=== PATIENT | female | born 1965 | race Caucasian/White ===

== ENCOUNTER 2020-11-05 10:44 | Emergency (ER) | payer OTHER, SELFPAY ==
--- NOTE | ~2020-11-05 | XR_ITS ---
EXAMINATION: XR chest 2V 11/05/2020 11:16 INDICATION: Chest pain PROCEDURE: 2 view chest COMPARISON: No prior studies for comparison. FINDINGS: The lungs are clear. The cardiomediastinal silhouette is within normal limits. There are no pleural effusions. There is no pneumothorax suspected. IMPRESSION: 1: NO ACUTE CARDIOPULMONARY DISEASE. Reviewed, dictated and finalized at location B.
[2020-11-05 11:00] VITALS: BP 135/52; PULSE 66; RESP 16; TEMP 36.6; O2SAT 99
[2020-11-05 11:01] VITALS: BP 135/52; PULSE 66; RESP 16; TEMP 36.6; O2SAT 99
--- NOTE | 2020-11-05 11:29 | ED.CHESTPAIN ---
HPI - Chest Pain General Chief Complaint: Chest Pain Stated Complaint: Chest Pain Source: patient and RN notes reviewed Limitations: no limitations History of Present Illness HPI narrative: The Covid vaccinated patient, a non-smoker/nondrinker with no HTN, HLD, AODM, early FMH, presents with chest pains. Patient states she has a shorter couple day history of retrosternal chest pain that is only present with deep breathing. It began 2 mornings ago lasted for several hours and resolved spontaneously after she took OTC aspirin. No radiation, fever, cough, S OB, calf pain/edema, CP now- except with deep breathing, laughing. No loss of taste/smell, nausea vomiting, rash; no reflux, acid taste, radiation. Available screening x-ray and EKG is completely normal; patient declines same-day hospital referral AMA. Related Data Home Medications Medication Instructions Recorded Confirmed sertraline 25 mg PO DAILY 11/05/20 11/05/20 Allergies Allergy/AdvReac Type Severity Reaction Status Date / Time No Known Allergies Allergy Verified 11/05/20 11:00 Review of Systems Review of Systems: Narrative: General/Constitutional: No weight loss,fever Eyes: N0: Redness,discharge Ears/Nose/Throat: No: Epistaxis,ear discharge Respiratory: Denies: Hemoptysis Gastrointestinal: No Vomiting, Bleeding-rectal Skin: No Lumps, eruption Neurologic: No Focal Weakness,Sz Hematologic: Denies: Petechiae/Purpura Psychiatric: No: Suicida ideationl All Other Systems: Reviewed and Negative [facility] At time of signature, agree with nursing past medical, surgical, social and family history. There is no relevant family history pertinent to the presenting complaint Exam Narrative: Exam Narrative: General Appearance: Well appearing, No distress EYE: PERRLA, Conjunctiva clear Ears: External ear normal Nose: Normal nose Mouth/Throat: Normal appearing, Normal lips Neck: Supple Respiratory: Airway patent, No respiratory distress Cardiovascular: RRR., Chest wall nontender Abdomen: Soft, Non-tender, Musculoskeletal: Full ROM Skin: Warm, Dry Neurological: A&O x3, CN II-X intact Psychiatric: Normal mood, Normal affect Course Course Emergency Course: Films visualized, interpreted by radiologist, agree, normal see report EKG: Sinus rhythm at 65 , AK interval 0.155, QTc 0.393 [place] XV degrees, no ST-T changes Vital Signs Vital signs: Vital Signs Temperature 97.9 F 11/05/20 11:00 Pulse Rate 66 11/05/20 11:00 Respiratory Rate 16 11/05/20 11:00 Blood Pressure 135/52 L 11/05/20 11:00 Pulse Oximetry 99 11/05/20 11:00 Temperature 97.9 F 11/05/20 11:01 Pulse Rate 66 11/05/20 11:01 Respiratory Rate 16 11/05/20 11:01 Blood Pressure 135/52 L 11/05/20 11:01 Pulse Oximetry 99 11/05/20 11:01 Discharge Plan Discharge Clinical Impression: Chest pain, pleuritic Patient Disposition: Left Against Medical Advice Condition: Stable Instructions: Pleurisy (ED) Additional Instructions: You have declined same-day hospital referral but can go to the ER at any time You may continue OTC preparations like baby aspirin 81 mg/day, Prilosec Prescriptions: No Action sertraline 25 mg tablet 25 mg PO DAILY RF: 0 Follow-up/Referrals: Jeanna,Mary Panchal MD [Primary Care Provider] -
--- NOTE | 2020-11-05 14:09 | ECG_ITS ---
Measurements Intervals [place] Rate: 65 P: 55 NH: 155 QRS: 14 QRSD: 94 T: 42 QT: 381 QTc: 398 Interpretive Statements SINUS RHYTHM NORMAL ECG Electronically Signed On 11-06-2020 19:03:32 CDT by Joe Rizo D.O.
== END 2020-11-05 11:38 | disposition left against medical advice (07) ==
PROVIDERS: Emergency Provider Emergency Medicine; PCP Family Medicine
DX: R07.81 Pleurodynia (principal); F41.9 Anxiety disorder, unspecified
CPT/HCPCS: 71046; 93005; 99213; G0463

== ENCOUNTER 2020-11-20 11:03 | Outpatient (CLI) | payer OTHER, SELFPAY ==
--- NOTE | 2020-11-20 | EST_ITS ---
Patient Info Name: Danette Grijalva Age: 55 years : 1965 Gender: Female Ht: 68 in Wt: 185 lbs BSA: 2.03 m2 Exam Date: 11/20/2020 11:25 AM Exam Location: [facility] Stress Patient Status: Outpatient Admit Date: 11/20/2020 Staff Ordering Physician: Jeanna, Mary Panchal MD Attending Provider: Jeanna, Mary Panchal MD Exercise Technologist: Viry Hess RDCS Exercise Physician: Rehan Currie MD Exam Type: CA stress test treadmill Study Info Indications R07.9 - Chest pain, unspecified A treadmill exercise stress test was performed. Summary 1. Normal stress test and stress ECG with near maximal exercise. 2. Above average exercise capacity for age. 3. No exercise induced chest pain. Protocol: [facility] Stress ECG Details Stage: REST Duration (min): 1 min : 57 sec Speed (mph): 0.0 Grade (%): 0 HR (bpm): 59 SBP (mmHg): 136 DBP (mmHg): 77 METS: --- Stage: REST Duration (min): 5 min : 5 sec Speed (mph): 0.0 Grade (%): 0 HR (bpm): 61 SBP (mmHg): 136 DBP (mmHg): 77 METS: --- Stage: STAGE 1 Duration (min): 1 min : 0 sec Speed (mph): 1.7 Grade (%): 10 HR (bpm): 88 SBP (mmHg): 136 DBP (mmHg): 77 METS: --- Stage: STAGE 1 Duration (min): 2 min : 0 sec Speed (mph): 1.7 Grade (%): 10 HR (bpm): 95 SBP (mmHg): 136 DBP (mmHg): 77 METS: --- Stage: STAGE 1 Duration (min): 3 min : 0 sec Speed (mph): 1.7 Grade (%): 10 HR (bpm): 102 SBP (mmHg): 120 DBP (mmHg): 65 METS: --- Stage: STAGE 2 Duration (min): 1 min : 0 sec Speed (mph): 2.5 Grade (%): 12 HR (bpm): 111 SBP (mmHg): 120 DBP (mmHg): 65 METS: --- Stage: STAGE 2 Duration (min): 2 min : 0 sec Speed (mph): 2.5 Grade (%): 12 HR (bpm): 125 SBP (mmHg): 132 DBP (mmHg): 66 METS: --- Stage: STAGE 2 Duration (min): 3 min : 0 sec Speed (mph): 2.5 Grade (%): 12 HR (bpm): 133 SBP (mmHg): 132 DBP (mmHg): 66 METS: --- Stage: STAGE 3 Duration (min): 1 min : 0 sec Speed (mph): 3.4 Grade (%): 14 HR (bpm): 151 SBP (mmHg): 132 DBP (mmHg): 66 METS: --- Stage: STAGE 3 Duration (min): 2 min : 0 sec Speed (mph): 3.4 Grade (%): 14 HR (bpm): 158 SBP (mmHg): 132 DBP (mmHg): 66 METS: --- Stage: STAGE 3 Duration (min): 2 min : 0 sec Speed (mph): 3.4 Grade (%): 14 HR (bpm): 158 SBP (mmHg): 132 DBP (mmHg): 66 METS: --- Stage: RECOVERY Duration (min): 0 min : 59 sec Speed (mph): 0.0 Grade (%): 0 HR (bpm): 116 SBP (mmHg): 150 DBP (mmHg): 76 METS: --- Stage: RECOVERY Duration (min): 1 min : 59 sec Speed (mph): 0.0 Grade (%): 0 HR (bpm): 93 SBP (mmHg): 150 DBP (mmHg): 76 METS: --- Stage: RECOVERY Duration (mi
== END 2020-11-20 11:04 | disposition home or self-care (01) ==
PROVIDERS: PCP Family Medicine; Visit Provider Family Medicine
DX: R07.9 Chest pain, unspecified (principal)
CPT/HCPCS: 93017

== ENCOUNTER 2021-08-16 16:39 | Outpatient (CLI) | payer OTHER, SELFPAY ==
--- NOTE | ~2021-08-16 | MR_ITS ---
EXAMINATION: MR foot LT wo con DATE: 08/16/2021 17:52 INDICATION: Fifth metatarsal avulsion TECHNIQUE: Magnetic resonance imaging (MRI) of the left fore/mid foot was performed without intraveno us contrast. Sequences included sagittal T1-weighted FSE, sagittal fluid sensitive FSE STIR, coronal PD-weighted FS FSE, coronal T1-weighted FSE, axial PD-weighted FS FSE, and axial PD-weighted FSE. COMPARISON: None FINDINGS: Avulsion fracture of the proximal tip of the lateral tuberosity of the fifth metatarsal involving the footplate of the peroneus brevis tendon. The fracture fragment is distracted 5 mm proximally with 60 degrees valgus angulation. Tendinopathy and longitudinal split tear of the visualized peroneus brevi s tendon distal to the tip of the lateral malleolus. Bone alignment is otherwise normal. There is add itional marrow edema consistent with bone contusions along the plantar aspect of the proximal and dis jailene articular surfaces of the cuboid. No other fractures identified. Joint spaces are normal. Small a nkle joint effusion.. The remaining flexor and extensor tendons of the foot are normal. There is part ial tear of the anterior talofibular ligament and visualized medial side stabilizing ligaments of the ankle appear normal. No asymmetric atrophy of the intrinsic musculature of the foot. IMPRESSION: 1. Mildly distracted and angulated avulsion fracture of the proximal tip at the lateral tuberosity of the fifth metatarsal. 2. Tendinopathy and longitudinal split tearing of the distal peroneus brevis tendon. 3. Additional bone contusions at the plantar aspect of the proximal and distal cuboid. 4. Partial tear of the anterior talofibular ligament with small ankle joint effusion. Reviewed, dictated and finalized at location A. IMPRESSION: 1. Mildly distracted and angulated avulsion fracture of the proximal tip at the lateral tuberosity of the fifth metatarsal. 2. Tendinopathy and longitudinal split tearing of the distal peroneus brevis te ndon. 3. Additional bone contusions at the plantar aspect of the proximal and distal cuboid. 4. Partial tear of the anterior talofibular ligament with small ankle joint eff usion.
== END 2021-08-16 16:40 | disposition home or self-care (01) ==
PROVIDERS: PCP Family Medicine; Visit Provider Podiatrist Foot & Ankle Surgery
DX: S92.352A Displaced fracture of fifth metatarsal bone, left foot, initial encounter for closed fracture (principal); X58.XXXA Exposure to other specified factors, initial encounter; M79.89 Other specified soft tissue disorders
CPT/HCPCS: 73718

== ENCOUNTER 2021-08-28 17:35 | Outpatient (CLI) | payer OTHER, SELFPAY ==
--- NOTE | ~2021-08-28 | XR_ITS ---
EXAMINATION: XR foot LT min 3V DATE: 08/28/2021 17:58 INDICATION: Left fifth metatarsal fracture. TECHNIQUE: 3 views of left foot were obtained. COMPARISON: Left foot MRI 08/16/2021 FINDINGS: There is moderate hallux valgus. There is a comminuted fracture of base of fifth metatarsal . The main fracture fragments demonstrate 7 mm distraction. There is mild osteoarthritis of first tar sometatarsal joint, first metatarsophalangeal joint, and some of the interphalangeal joints. IMPRESSION: 1. Comminuted fracture of base of fifth metatarsal. 2. Moderate hallux valgus. 3. Polyarticular osteoarthritis. Reviewed, dictated and finalized at location A.
== END 2021-08-28 17:36 | disposition home or self-care (01) ==
PROVIDERS: PCP Family Medicine; Visit Provider Podiatrist Foot & Ankle Surgery
DX: S92.352A Displaced fracture of fifth metatarsal bone, left foot, initial encounter for closed fracture (principal); X58.XXXA Exposure to other specified factors, initial encounter; M19.072 Primary osteoarthritis, left ankle and foot; M20.12 Hallux valgus (acquired), left foot
CPT/HCPCS: 73630

== ENCOUNTER 2024-09-14 10:00 | Outpatient (CLI) | payer OTHER, SELFPAY ==
--- OUTSIDE RECORDS SUMMARY | 2024-09-14 11:00 | XMS_ITS | Encounter Summary ---
Author Organization [facility] Address [address] [place] [address] Care Team Providers Care Intelligence Engineer Name Role Phone Efraín Holden MD Primary Care Provider [phone] Gaby Guo RN Unavailable Unavailable Mary Meeks MD Primary Care Provider [phone] Encounter Details Date Type Department Care Team ([facility] Contact Info) Description 05/26/2018 Telephone [facility] [address] [place] [address] Corinne Newman MD [address] [place] [address] Social History Tobacco Use Types Packs/Day Years Used Date Smoking Tobacco: Never Smokeless Tobacco: Never Alcohol Use Standard Drinks/Week Comments Yes 0 (1 standard drink = 0.6 oz pur e alcohol) Comments No Sex and Gender Information Value Date Recorded Sex Assigned at Not on file Legal Sex Female 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 Gender Identity Not on file Sexual Orientation Not on file documented as of this encounter Plan of Treatment Upcoming Encounters Date Type Department Care Team (Late Contact Info) Description 01/09/2025 11:30 AM CDT Appointment [facility] [address], [place] [id number] documented as of this encounter Visit Diagnoses Not on filedocumented in this encounter Care Teams Intelligence Engineer Relationship Specialty Start Date End Date Efraín Holden MD PCP - General 11/23/12 08/22/20 Mary Meeks MD [address] [place] [address] MICHELLE Elliott [phone] PCP - General Family Medicine 08/23/20 Gaby Guo, RN REGISTERED NURSE MEDICAL SURGICAL 05/11/18 documented as of this encounter
--- OUTSIDE RECORDS SUMMARY | 2024-09-14 11:00 | XMS_ITS | Referral Summary ---
Author Organization [facility] Address [address] [place] [address] Care Team Providers Care Garbage Stoker Name Role Phone Mary Meeks MD Primary Care Provider + Allergies No known active allergies Medications multivitamin capsule Take 1 capsule by mouth daily. Active ibuprofen (ADVIL,MOTRIN) 600 mg tablet Take 1 tablet (600 mg total) by mouth every 6 (six) hours as needed for pain. 8 Active Additional Information Patient not taking.Reported on 06/28/2021 cholecalciferol (VITAMIN D-3) 2000 unit tablet Take by mouth Active sertraline (ZOLOFT) 25 mg tablet 1 Active multivit-min/ir on/folic/lutein (CENTRUM SILVER WOMEN ORAL) Take 1 tablet by mouth Active EVENING PRIMROSE OIL ORAL Take by mouth Active naproxen (ALEVE) 220 mg tablet Take by mouth as needed for pain Active Active Problems Problem Noted Date Diagnosed Date Memory impairment 05/01/2015 Cyst of breast 10/20/2011 Immunizations Immunization Administration Dates Next Due Flucelvax Influenza Quad 03/03/2019,03/03/2017 Influenza, Quadrivalent, Spl it, Preservative Free, Intramuscular 04/04/2016 Influenza, Trivalent, High D ose, Split, Preservative Free, Intramuscular 05/19/2014 Influenza, Trivalent, IM (MDV) 03/23/2013 Influenza, Trivalent, Preservative Free, Intramu scular 03/23/2015,05/15/2014 ZOSTER Recombinant 06/12/2019,03/26/2019 Social History Tobacco Use Types Packs/Day Years Used Date Smoking Tobacco: Never Smokeless Tobacco: Never Alcohol Use Standard Drinks/Week Comments No 0 (1 standard drink = 0.6 oz pur e alcohol) Comments No Sex and Gender Information Value Date Recorded Sex Assigned at Not on file Legal Sex Female 10:29 AM CABBAGE SALTER Gender Identity Female 08/03/2022 7:32 PM CABBAGE SALTER Sexual Orientation Straight 08/03/2022 7: 32 PM CABBAGE SALTER Last Filed Vital Signs Vital Sign Reading Time Taken Comments Blood Pressure 120/80 06/28/2021 3:33 PM CABBAGE SALTER Pulse 62 09/24/2017 12:35 PM CDT Temperature 36.5 C (97.7 F) 09/24/2017 12:04 PM CDT Respiratory Rate 16 09/24/2017 12:35 PM CDT Oxygen Saturation 99% 09/24/2017 12:35 PM CDT Inhaled Oxygen Concentration - - Weight 87.6 kg (193 lb 1.6 oz) 06/28/2021 3:33 P M CABBAGE SALTER Height 171.5 cm (5' 7.5 ) 06/28/2021 3:33 PM CABBAGE SALTER Body Mass Index 29.8 06/28/2021 3:33 PM CABBAGE SALTER Plan of Treatment Not on file Insurance Care Teams Garbage Stoker Relationship Specialty Start Date End Date Mary Meeks MD [address] [place] [address] DR BRUT [address] [place] [phone] PCP - General Family Medicine 09/12/20
--- OUTSIDE RECORDS SUMMARY | 2024-09-14 11:00 | XMS_ITS | Clinical Summary ---
Author Organization [facility] Address [address] [place] [address] Care Team Providers Care Corrugator Operator Name Role Phone Gaby Guo RN Unavailable Unavailable Mary Meeks MD Primary Care Provider [phone] [facility],non-owned Affiliates and Associated Physician Practices is amultiple site organization consisting of ambulatory clinics and hospital sitesin [place], [place], [place] and [place]. This disclosure is being madepursuant to the Care Everywhere program and may not contain all information available regarding this patient. Last updated 18.[facility] [place] Allergies No known active allergies Medications * Be aware that medications may not be up to date on this document. Alwaysverify current medications with the patient. 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 Discharge Disposition: Home or Self Care 08/29/2024 8:28 AM CDT - 08/29/2024 8:31 AM CDT Hospital Encounter [facility] [address] [place] [address] Nati Bro APRN-CNP Discharge Disposition: Home or Self Care 08/29/2024 Travel 08/10/2024 7:48 AM CDT - 08/10/2024 11:59 PM CDT Hospital Encounter [address] [address] Discharge Disposition: Home or Self Care 08/10/2024 7:47 AM CDT Hospital Encounter [address] [address] Nati Bro APRN-CNP Discharge Disposition: Home or Self Care 08/10/2024 Travel 07/18/2024 12:39 PM [employer] - 07/18/2024 11:59 PM [employer] Hospital Encounter [address] [address] Nati Bro APRN-CNP Discharge Disposition: Home or Self Care 07/18/2024 Travel from Last 3 Months Family History Medical History Relation Name Comments Arthritis - Osteo Father Cancer - Skin, Non Melanoma Father Arthritis - Rheumatoid Mother Cancer - Colon Paternal Grandmother Relation Name Status Comments Father Mother Paternal Grandmother Social History Tobacco Use Types Packs/Day Years Used Date Smoking Tobacco: Never Smokeless Tobacco: Never Alcohol Use Standard Drinks/Week Comments Yes 0 (1 standard drink = 0.6 oz pur e alcohol) Comments No Sex and Gender Information Value Date Recorded Sex Assigned at Not on file Legal Sex Female 5:35 PM [employer] Gender Identity Not on file Sexual Orientation Not on file Last Filed Vital Signs Vital Sign Reading Time Taken Comments Blood Pressure 106/72 06/24/2018 4:25 PM [employer] Pulse 80 05/12/2018 8:40 AM [employer] Temperature 37.2 C (99 F) 05/12/2018 8:40 AM [employer] Respiratory Rate 18 05/12/2018 8:40 AM [employer] Oxygen Saturation 98% 05/12/2018 8:40 AM [employer] Inhaled Oxygen Concentration - - Weight 91.6 kg (202 lb) 07/18/2024 12:55 PM [employer] Height 170.2 cm (5' 7 ) 07/18/2024 12:55 PM [employer] Body Mass Index 31.64 07/18/2024 12:55 PM [employer] Plan of Treatment Upcoming Encounters Date Type Department Care Team (Late st Contact Info) Description 01/09/2025 11:30 AM CDT Appointment [facility] [address] [place] [phone] Health Maintenance Due Date Last Done Comments COLOGUARD (AGES 45-75) - COLON CA SCREENING 1965 COLON MONITORING 1965 COLONOSCOPY - COLON CA SCREENING 1965 CT COLONOGRAPHY - COLON CA SCREENING 1965 Colorectal Cancer Screening 1965 FIT - COLON CA SCREENING 1965 FLEX SIG - COLON CA SCREENING 1965 LIPID TESTING 1965 HIV SCREENING 1980 HEPATITIS C SCREENING 05/09/1983 DTAP/TDAP/TD VACCINES (1 - Tdap) 1984 HEPATITIS B VACCINE (1 of 3 - 19+ 3-dose series) 1984 PNEUMOCOCCAL VACCINE 50+ (1 of 1 - PCV) 2015 ZOSTER VACCINE (1 of 2) 2015 SCREENING FOR DIABETES 11/09/2017 COVID-19 VACCINE ( - season) 2024 DEPRESSION SCREENING 06/01/2024 INFLUENZA VACCINE (Season Ended) 2025 03/03/2019, 03/03/2017, 04/05/2016, Additional history exists MAMMOGRAM 07/18/2026 07/18/2024, 12/2022, 10/06/2022, Additional history exists HIB VACCINE Aged Out No longer eligi ble based on patient's age to complete this topic HPV VACCINE Aged Out No longer eligi ble based on patient's age to complete this topic MENINGOCOCCAL (Group B) VACCINE SHARED DECISION-MAKING Aged Out No longer eligible based on patient's age to complete this topic MENINGOCOCCAL GROUPS A/C/Y/W VACCINE Aged Out No longer eligible based on patient's age to complete this topic Medical Devices Implanted Type Area Cracker Off Device Identifier Shelf Expiration Date Model / Serial / Lot Mrkr Rgd End Dpl Dlv Sys Securmark Implanted:Qty: 1 on 09/18/2020 by Chayito Scott MD at [facility] Right: Breast Hologic 04/23/2021 SMARK-EVIV [id number] Mrkr Apl 3 Mrfbr Pd Radopq Interwoven - [id number] Implanted:Qty: 1 on 08/29/2024 by Chayito Scott MD at [facility] Peripheral Vascular 10/30/2026 [id number] / [id number] / [id number] Procedures Procedure Name Priority Date/Time Associated Diagnosis Comments US BREAST RIGHT BIOPSY Routine 08/29/2024 9:15 AM CDT Abnormal mammogram PATHOLOGY TISSUE Routine 08/29/2024 9:05 AM CDT Abnormal mammogram MAMMO RIGHT POST CLIP OR WIRE W JASON Routine 08/29/2024 8:43 AM CDT Abnormal mammogram US BREAST RIGHT LTD Routine 08/10/2024 9:18 AM CDT Abnormal mammogram MAMMO RIGHT DIAGNOSTIC W JASON Routine 08/10/2024 8:38 AM CDT Abnormal mammogram MAMMO BILAT SCREENING W JASON Routine 07/18/2024 12:55 PM [employer] Encounter for screening mammogram for malignant neoplasm of breast from Last 3 Months Results * US Breast Right Biopsy (08/29/2024 9:15 AM CDT) Anatomical Region Laterality Modality Breast Right Mammography 08/29/2024 9:12 AM CDT Addenda Addendum by Chayito Scott MD on 08/30/2024 12:47 PM CDT ADDENDUM: PATHOLOGY RESULTS LOCATION: [facility] DATE OF ADDENDUM: 08/30/[address] Ewa Fung from biopsy of the RIGHT breast performed by Dr. Scott demonstrates fibrous tissue with incidental single microcalcification in the lumen of the small duct. There is no atypia or malignancy. This is a benign lesion The pathology report is concordant with the imaging findings. Recommendation: Per diagnostic mammogram report 08/10/2024, diagnostic right mammogram recommended in December 2024 to reassess a probably benign asymmetry noted on the craniocaudal view on mammogram 08/10/2024 and 07/18/2024. Our nurse navigator will notify the patient of the biopsy findings and recommendations. Pathology report available for the referring provider via [employer]. > Interpreting Provider: Chayito Scott MD, FACR on 08/30/2024 12:45 PM Impressions 08/29/2024 9:46 AM CDT IMPRESSION: 1. Technically successful, uncomplicated ultrasound-guided core biopsy performed of a 0.5 cm mass in the RIGHT breast, 12:00 subareolar region. Of note, this may represent a cyst as the mass dissipated during the biopsy. 2. A coil -shaped tissue marker was placed at the biopsy site. The tissue marker is in good position at the biopsy site. 3. Pathology results are pending. We will notify the patient of the pathology findings and recommendations. An addendum will be rendered to this report when the pathology results are made available. > Interpreting Provider: Chayito Scott MD, FACR on 08/29/2024 9:46 AM Narrative 08/29/2024 9:46 AM CDT EXAM: 1. ULTRASOUND-GUIDED RIGHT BREAST BIOPSY AND 2. POST BIOPSY DIGITAL MAMMOGRAM WITH TOMOSYNTHESIS RIGHT BREAST (COMBINED REPORT) LOCATION: [facility] EXAM DATE: 08/29/2024 CLINICAL INFORMATION: Biopsy requested of a 0.5 cm mass in the RIGHTbreast, 12:00 subareolar region. COMPARISON: Prior breast imaging studies from [facility], dated 08/10/2024 and 07/18/2024. TECHNIQUE AND FINDINGS: Preprocedure images were reviewed. The procedure and its risks and benefits were discussed with the patient, including, but not limited to, bleeding, infection, allergy, and nondiagnostic specimen. Written and verbal informed consent was obtained and documented. After confirming the correct breast for biopsy, the breast was marked with a marking pen. The patient was then placed in a supine position on the ultrasound table. Prior to the procedure a hospital timeout procedure was performed, including verification of the laterality of the breast for biopsy. Ultrasound was performed for location of the lesion. The 0.5 cm mass in the breast, 12:00 subareolar region, was localized with ultrasound guidance. The breast was cleansed with ChloraPrep and draped in a sterile fashion. Local anesthesia was given with 4 cc of 1% Lidocaine, buffered with Sodium Bicarbonate within the skin and deeper anesthesia with 15 cc of 1% Lidocaine with Epinephrine, buffered withSodium Bicarbonate. A small skin incision was made with a #11 scalpel blade, and through it a 12-gauge Elevation with an introducer was inserted to the depth of the lesion from a lateral approach. 3 biopsy samples were obtained through the lesion. Following the biopsy, the lesion was no longer identified and this likely represents a complicated cyst. A coil -shaped tissue marker was placed at the biopsy site and a post biopsy sonogram demonstrated no evidence for hematoma about the biopsy site. Of note, patient has an S-shaped and top shaped tissue marker also in the right breast from remote biopsies. Hemostasis was achieved, and the small wound was closed with Exofin. Estimated blood loss: Minimal The tissue samples were placed in formalin and delivered to the pathology department by the technologist. Mammogram: A two-view RIGHT mammogram with tomosynthesis (3D) and reconstructed C-view( 2D) images with CC and true lateral projections was obtained to check clip placement. Breast Composition: Category B: There are scattered areas of fibroglandular density. coil -shaped tissue marker. The tissue marker is in good position at the biopsy site. ASSESSMENT: POSTPROCEDURE MAMMOGRAM FOR MARKER PLACEMENT The patient tolerated the procedure well, with no immediate post biopsy complications. The patient was given verbal, as well as written postprocedure instructions (including Exofin instructions) and was released from the department in good condition. The attending physician, Chayito Scott MD, was present for and performed the entire procedure. us Nati AUSTIN ORDERABLES Edited R esult - Final * PATHOLOGY TISSUE (08/29/2024 9:05 AM CDT) Case Report Surgical Pathology Report Case: [id number] Authorizing Provider: Nati Bro APRN-CNP Collected: 08/29/2024 09:05 AM Ordering Location: [facility] Received: 08/29/2024 09:26 AM CENTER Pathologist: Ewa Fung MD Specimen: Breast, Right, Subareolar 12:00 08/30/2024 11:15 AM CDT [facility] Final Diagnosis Breast, right, subareolar, 12:00, needle core biopsy (A): - Fibrous breast with incidental single microcalcification 08/30/2024 11:15 AM [facility] Microscopic Description and Comment Microscopic examination substantiates the final diagnosis. The biopsy is benign. The microcalcification is in the lumen of a small duct. 08/30/2024 11:15 AM [facility] Clinical History 59 year old woman with prior left and right breast benign biopsies has right breast lesion.Targeted ultrasound at 12:00 1 cm from the nipple shows an incidentally noted 0.5 x 0.3 x 0.3 cm hypoechoic oval circumscribed mass without internal vascularity. BIRADS 4A 08/30/2024 11:15 AM [facility] Gross Description The requisition and specimen(s) are identified with the patient's name Nati Grijalva . Received in formalin, specimen A subareolar 12:00 , consists of a 1.7 x 1.3 x 0.7 cm aggregate of fatty fibro breast tissue. The specimen is entirely submitted in A1. The following times are on 08/29/2024: Time of excision: 0905 Time specimen is placed in formalin: 0910 Time out of formalin: 1720 Total cold ischemia time: 5 minutes 08/30/2024 11:15 AM [facility] Pathologist Location at [facility] 08/30/2024 11:15 AM [facility] Disclaimer The performance characteristics of all immunohistochemical and indirect immunofluorescence stains (if any) cited in this report were determined by the Histopathology Laboratory of [facility]. Some of these tests were developed by our own laboratory and have not been cleared or approved by the US Food and Drug Administration. The FDA does not require this test to go through premarket FDA review. These tests are used for clinical purposes. They should not be regarded as investigational or for research. This laboratory is certified under the Clinical Laboratory Improvement Amendments (CLIA) as qualified to perform high complexity clinical laboratory testing. This case has been personally reviewed and interpreted by the attending (teaching) pathologist. 08/30/2024 11:15 AM [facility] Collected By Chayito Scott MD 04/ 06/2024 11:15 AM CDT [facility] Embedded Images 08/30/2024 11:15 AM CDT [facility] Pathology/Cytolo gy (Breast, Right) 08/29/2024 9:05 AM CDT 08/29/2024 9:26 AM CDT us Nati Bro PRESSURISED CONTAINER FILLER-BOAT CANVAS INSTALLER LAB - PATHOLOGY/CYTOLOGY ORDERABLES Final Result [facility] [address] [place] [address], [facility] [phone] * Mammo Right Post Clip or Wire W Jason (08/29/2024 8:43 AM CDT) Anatomical Region Laterality Modality Breast Right Mammography 08/29/2024 9:12 AM CDT Addenda Addendum by Chayito Scott MD on 08/30/2024 12:47 PM CDT ADDENDUM: PATHOLOGY RESULTS LOCATION: [facility] DATE OF ADDENDUM: 08/30/[address] Ewa Fung from biopsy of the RIGHT breast performed by Dr. Scott demonstrates fibrous tissue with incidental single microcalcification in the lumen of the small duct. There is no atypia or malignancy. This is a benign lesion The pathology report is concordant with the imaging findings. Recommendation: Per diagnostic mammogram report 08/10/2024, diagnostic right mammogram recommended in December 2024 to reassess a probably benign asymmetry noted on the craniocaudal view on mammogram 08/10/2024 and 07/18/2024. Our nurse navigator will notify the patient of the biopsy findings and recommendations. Pathology report available for the referring provider via [employer]. > Interpreting Provider: Chayito Scott MD, FACR on 08/30/2024 12:45 PM Impressions 08/29/2024 9:46 AM CDT IMPRESSION: 1. Technically successful, uncomplicated ultrasound-guided core biopsy performed of a 0.5 cm mass in the RIGHT breast, 12:00 subareolar region. Of note, this may represent a cyst as the mass dissipated during the biopsy. 2. A coil -shaped tissue marker was placed at the biopsy site. The tissue marker is in good position at the biopsy site. 3. Pathology results are pending. We will notify the patient of the pathology findings and recommendations. An addendum will be rendered to this report when the pathology results are made available. > Interpreting Provider: Chayito Scott MD, FACR on 08/29/2024 9:46 AM Narrative 08/29/2024 9:46 AM CDT EXAM: 1. ULTRASOUND-GUIDED RIGHT BREAST BIOPSY AND 2. POST BIOPSY DIGITAL MAMMOGRAM WITH TOMOSYNTHESIS RIGHT BREAST (COMBINED REPORT) LOCATION: [facility] EXAM DATE: 08/29/2024 CLINICAL INFORMATION: Biopsy requested of a 0.5 cm mass in the RIGHTbreast, 12:00 subareolar region. COMPARISON: Prior breast imaging studies from [facility], dated 08/10/2024 and 07/18/2024. TECHNIQUE AND FINDINGS: Preprocedure images were reviewed. The procedure and its risks and benefits were discussed with the patient, including, but not limited to, bleeding, infection, allergy, and nondiagnostic specimen. Written and verbal informed consent was obtained and documented. After confirming the correct breast for biopsy, the breast was marked with a marking pen. The patient was then placed in a supine position on the ultrasound table. Prior to the procedure a hospital timeout procedure was performed, including verification of the laterality of the breast for biopsy. Ultrasound was performed for location of the lesion. The 0.5 cm mass in the breast, 12:00 subareolar region, was localized with ultrasound guidance. The breast was cleansed with ChloraPrep and draped in a sterile fashion. Local anesthesia was given with 4 cc of 1% Lidocaine, buffered with Sodium Bicarbonate within the skin and deeper anesthesia with 15 cc of 1% Lidocaine with Epinephrine, buffered withSodium Bicarbonate. A small skin incision was made with a #11 scalpel blade, and through it a 12-gauge Elevation with an introducer was inserted to the depth of the lesion from a lateral approach. 3 biopsy samples were obtained through the lesion. Following the biopsy, the lesion was no longer identified and this likely represents a complicated cyst. A coil -shaped tissue marker was placed at the biopsy site and a post biopsy sonogram demonstrated no evidence for hematoma about the biopsy site. Of note, patient has an S-shaped and top shaped tissue marker also in the right breast from remote biopsies. Hemostasis was achieved, and the small wound was closed with Exofin. Estimated blood loss: Minimal The tissue samples were placed in formalin and delivered to the pathology department by the technologist. Mammogram: A two-view RIGHT mammogram with tomosynthesis (3D) and reconstructed C-view( 2D) images with CC and true lateral projections was obtained to check clip placement. Breast Composition: Category B: There are scattered areas of fibroglandular density. coil -shaped tissue marker. The tissue marker is in good position at the biopsy site. ASSESSMENT: POSTPROCEDURE MAMMOGRAM FOR MARKER PLACEMENT The patient tolerated the procedure well, with no immediate post biopsy complications. The patient was given verbal, as well as written postprocedure instructions (including Exofin instructions) and was released from the department in good condition. The attending physician, Chayito Scott MD, was present for and performed the entire procedure. us Nati Bro PRESSURISED CONTAINER F[employer] INSTALLER MAMMO ORDERABLES Edited Result - Final * (ABNORMAL) US BREAST RIGHT LTD (Diagnostic, most commonly ordered) (08/10/2024 9:18 AM CDT) Anatomical Region Laterality Modality Breast Right Mammography 08/10/2024 8:19 AM CDT Impressions 08/10/2024 9:25 AM CDT IMPRESSION: 1. A 0.5 cm mass is incidentally noted at 12:00 1 cm from the nipple. An ultrasound core biopsy is recommended at this time. 2. A probably benign asymmetry without a sonographic correlate is present on the CC view in the central breast. If the above pathology results are benign, a diagnostic mammogram is recommended in 6 months to follow-up the asymmetry. If pathology results are malignant, a stereotactic core biopsy of the asymmetry can be considered. RECOMMENDATION: 1. Ultrasound core biopsy of the right breast is recommended. 2. If the pathology results are benign, a diagnostic mammogram is recommended in 6 months to follow-up the asymmetry in the central breast on the CC view. If pathology results are malignant, a stereotactic core biopsy of the asymmetry can be considered. Dr. Rodríguez discussed the examination findings and recommendations with the patient at the time of the examination. Patient will also receive the exam results by lay letter. OVERALL ASSESSMENT: BI-RADS CATEGORY 4: SUSPICIOUS. (SUBSET CATEGORY 4A: LOW SUSPICION FOR MALIGNANCY). Report dictated by Miky Medeiros MD, PhD (radiology physician). LUIS FERNANDO Venegas, [facility] and Heber Oilvo MD, assisted in the evaluation and interpretation of the study. I, Ritu Rodríguez MD have personally reviewed and interpreted this examination/study. > Interpreting Provider: Ritu Rodríguez MD on 08/10/2024 9:25 AM Narrative 08/10/2024 9:25 AM CDT EXAMINATIONS: 1. RIGHT DIGITAL DIAGNOSTIC MAMMOGRAM AND BREAST TOMOSYNTHESIS AND 2. LIMITED RIGHT BREAST ULTRASOUND (COMBINED REPORT) LOCATION: [facility] EXAM DATE: 08/10/2024 HISTORY: Follow-up to an abnormal screening mammogram. 59-year-old female presents for workup of 2 questioned asymmetries in the right breast on recent screening. RISK ASSESSMENT CALCULATION: Patient completed a breast cancer risk assessment during her appointment 08/10/2024. Based upon the information she provided and her mammographic breast density, her lifetime risk of developing breast cancer is 9 % (Average Risk <15%; Intermediate / Moderate Risk 15-19; High Risk > 20%). Risk assessment based upon the Tyrer-Cuzick v8 model. COMPARISON: Prior breast imaging studies from [facility], dated 07/18/2024, and prior studies back to 2020 MAMMOGRAM: TECHNIQUE: Diagnostic right mammography was performed.Tomosynthesis (3D) and reconstructed synthetic 2-D images acquired. Right true lateral, right craniocaudal, right mediolateral oblique, and craniocaudal and right mediolateral oblique spot magnification compression views were obtained. A total of 5 images were obtained. Transpara AI was utilized. BREAST COMPOSITION: Category B: There are scattered areas of fibroglandular density. FINDINGS: The asymmetry questioned on recent screening study persists in the central breast on today's additional images (spot CC view ). The area of asymmetry questioned on the recent screening study in the upper breast does not persist on additional imaging, consistent with benign superimposition of breast parenchyma. Two core biopsy tissue markers are noted in the upper outer breast. LIMITED RIGHT BREAST ULTRASOUND: FINDINGS: Targeted ultrasound at 12:00 1 cm from the nipple shows an incidentally noted 0.5 x 0.3 x 0.3 cm hypoechoic oval circumscribed mass without internal vascularity. Targeted ultrasound at 12:00 and 6:00 4 cm from the nipple shows no sonographic abnormality. Targeted ultrasound of the retroareolar breast shows no sonographic abnormality. Targeted ultrasound at 10:00, 11:00, 12:00, 1:00, 2:00 8 cm from the nipple shows no sonographic abnormality. us Nati Bro PRESSURISED CONTAINER F[employer]AT [employer]VAS INSTALLER US ORDERABLES Final Re sult * (ABNORMAL) Mammo Right Diagnostic W Jason (08/10/2024 8:38 AM CDT) Anatomical Region Laterality Modality Breast Right Mammography 08/10/2024 8:19 AM CDT Impressions 08/10/2024 9:25 AM CDT IMPRESSION: 1. A 0.5 cm mass is incidentally noted at 12:00 1 cm from the nipple. An ultrasound core biopsy is recommended at this time. 2. A probably benign asymmetry without a sonographic correlate is present on the CC view in the central breast. If the above pathology results are benign, a diagnostic mammogram is recommended in 6 months to follow-up the asymmetry. If pathology results are malignant, a stereotactic core biopsy of the asymmetry can be considered. RECOMMENDATION: 1. Ultrasound core biopsy of the right breast is recommended. 2. If the pathology results are benign, a diagnostic mammogram is recommended in 6 months to follow-up the asymmetry in the central breast on the CC view. If pathology results are malignant, a stereotactic core biopsy of the asymmetry can be considered. Dr. Rodríguez discussed the examination findings and recommendations with the patient at the time of the examination. Patient will also receive the exam results by lay letter. OVERALL ASSESSMENT: BI-RADS CATEGORY 4: SUSPICIOUS. (SUBSET CATEGORY 4A: LOW SUSPICION FOR MALIGNANCY). Report dictated by Miky Medeiros MD, PhD (radiology physician). LUIS FERNANDO Venegas, [facility] and Heber Olivo MD, assisted in the evaluation and interpretation of the study. I, Ritu Rodríguez MD have personally reviewed and interpreted this examination/study. > Interpreting Provider: Ritu Rodríguez MD on 08/10/2024 9:25 AM Narrative 08/10/2024 9:25 AM CDT EXAMINATIONS: 1. RIGHT DIGITAL DIAGNOSTIC MAMMOGRAM AND BREAST TOMOSYNTHESIS AND 2. LIMITED RIGHT BREAST ULTRASOUND (COMBINED REPORT) LOCATION: [facility] EXAM DATE: 08/10/2024 HISTORY: Follow-up to an abnormal screening mammogram. 59-year-old female presents for workup of 2 questioned asymmetries in the right breast on recent screening. RISK ASSESSMENT CALCULATION: Patient completed a breast cancer risk assessment during her appointment 08/10/2024. Based upon the information she provided and her mammographic breast density, her lifetime risk of developing breast cancer is 9 % (Average Risk <15%; Intermediate / Moderate Risk 15-19; High Risk > 20%). Risk assessment based upon the Tyrer-Cuzick v8 model. COMPARISON: Prior breast imaging studies from [facility], dated 07/18/2024, and prior studies back to 2020 MAMMOGRAM: TECHNIQUE: Diagnostic right mammography was performed.Tomosynthesis (3D) and reconstructed synthetic 2-D images acquired. Right true lateral, right craniocaudal, right mediolateral oblique, and craniocaudal and right mediolateral oblique spot magnification compression views were obtained. A total of 5 images were obtained. Transpara AI was utilized. BREAST COMPOSITION: Category B: There are scattered areas of fibroglandular density. FINDINGS: The asymmetry questioned on recent screening study persists in the central breast on today's additional images (spot CC view 45/). The area of asymmetry questioned on the recent screening study in the upper breast does not persist on additional imaging, consistent with benign superimposition of breast parenchyma. Two core biopsy tissue markers are noted in the upper outer breast. LIMITED RIGHT BREAST ULTRASOUND: FINDINGS: Targeted ultrasound at 12:00 1 cm from the nipple shows an incidentally noted 0.5 x 0.3 x 0.3 cm hypoechoic oval circumscribed mass without internal vascularity. Targeted ultrasound at 12:00 and 6:00 4 cm from the nipple shows no sonographic abnormality. Targeted ultrasound of the retroareolar breast shows no sonographic abnormality. Targeted ultrasound at 10:00, 11:00, 12:00, 1:00, 2:00 8 cm from the nipple shows no sonographic abnormality. 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 The technical repeat was completed on the day of the diagnostic study with a left exaggerated craniocaudal lateral view to obtain the further posterior tissue in the outer left breast. The left breast findings remain there are no suspicious finding or evidence of malignancy on mammography. The overall BI-RADS remains the same as the right breast at asymmetries which are further evaluated on diagnostic imaging. RECOMMENDATION: Diagnostic right mammogram. If indicated at that time, right breast ultrasound will be performed. Patient will be contacted and scheduled to return for the additional imaging. OVERALL ASSESSMENT: BI-RADS CATEGORY 0: INCOMPLETE: NEED ADDITIONAL IMAGING EVALUATION. > Interpreting Provider: Susan Easton MD on 08/10/2024 1:57 PM Impressions 07/18/2024 1:50 PM [facility] IMPRESSION: 1. One view asymmetry in the right central slightly medial breast 2. One view asymmetry/possible architectural distortion in the right upper breast 2. No suspicious finding in the left breast however technically further posterior tissue of the outer left breast can be obtained. This can be completed at the time of the right diagnostic per below. RECOMMENDATION: Diagnostic right mammogram. If indicated at that time, right breast ultrasound will be performed. Patient will be contacted and scheduled to return for the additional imaging. At the time of the right diagnostic mammogram, a technical repeat for the left outer breast in the craniocaudal view should be obtained. OVERALL ASSESSMENT: BI-RADS CATEGORY 0: INCOMPLETE: NEED ADDITIONAL IMAGING EVALUATION. Report dictated by Farida Santana MD. Nacho Carson MD also assisted with the interpretation of this exam. I, Susan Easton MD have personally reviewed and interpreted this examination/study. > Interpreting Provider: Susan Easton MD on 07/18/2024 1:50 PM Narrative 07/18/2024 1:50 PM [facility] EXAMINATIONS: BILATERAL DIGITAL SCREENING MAMMOGRAM AND BILATERAL BREAST TOMOSYNTHESIS LOCATION: [facility] EXAM DATE: 07/18/2024 HISTORY: Screening. No reported family history of breast cancer. Patient is status post biopsy of hypoechoic mass within the left lateral breast. Pathology report demonstrates benign breast tissue with cholesterol clefts and granulomatous inflammation. Usual ductal hyperplasia, likely representing reaction to ruptured cyst contents. No atypia or malignancy. RISK ASSESSMENT CALCULATION: Patient completed a breast cancer risk assessment during her appointment 07/18/2024. Based upon the information she provided and her mammographic breast density, her lifetime risk of developing breast cancer is 10 % (Average Risk <15%; Intermediate / Moderate Risk 15-19; High Risk > 20%). Risk assessment based upon the BRCAPRO model. COMPARISON: Comparison is made to prior mammograms back to 09/10/2020. TECHNIQUE: Tomosynthesis (3D) and reconstructed synthetic 2-D images acquired and reviewed in the bilateral craniocaudal and mediolateral oblique projections. A total of 5 images obtained. Transpara AI was utilized in the interpretation. BREAST PARENCHYMAL COMPOSITION: Category B: There are scattered areas of fibroglandular density. FINDINGS: Right breast: In the right central slightly medial breast on the craniocaudal view there is a 1 view asymmetry approximately 4.6 cm from the nipple. This is best visualized on image 49 of 74. This may represent summation of breast tissue. However it warrants further evaluation. In the right upper breast on the mediolateral oblique view best visualized on image 38 of 78 approximately 7 cm from the nipple there is questioned architectural distortion/one view asymmetry. Left breast: There are no suspicious findings or evidence of malignancy on mammography. Procedure Note Susan Easton MD - 07/18/2024 EXAMINATIONS: BILATERAL DIGITAL SCREENING MAMMOGRAM AND BILATERALBREAST TOMOSYNTHESIS LOCATION: [facility] EXAM DATE: 07/18/2024 HISTORY: Screening. No reported family history of breast cancer.Patient is status post biopsy of hypoechoic mass within the left lateral breast. Pathology report demonstrates benign breast tissue with cholesterolclefts and granulomatous inflammation. Usual ductal hyperplasia, likely representing reaction to ruptured cyst contents. No atypia ormalignancy. RISK ASSESSMENT CALCULATION: Patient completed a breast cancer risk assessment during her appointment 07/18/2024. Based upon the information she provided and her mammographic breast density, her lifetime risk of developing breast cancer is 10 % (Average Risk <15%; Intermediate / Moderate Risk 15-19; High Risk > 20%). Risk assessment based upon the BRCAPRO model. COMPARISON: Comparison is made to prior mammograms back to 09/10/2020. TECHNIQUE: Tomosynthesis (3D) and reconstructed synthetic 2-D images acquired and reviewed in the bilateral craniocaudal and mediolateral oblique projections. A total of 5 images obtained. Transpara AI was utilized in the interpretation. BREAST PARENCHYMAL COMPOSITION: Category B: There are scattered areas of fibroglandular density. FINDINGS: Right breast: In the right central slightly medial breast on the craniocaudal viewthere is a 1 view asymmetry approximately 4.6 cm from the nipple. This is best visualized on image 49 of 74. This may represent summation of breast tissue. However it warrants further evaluation. In the right upper breast on the mediolateral oblique view bestvisualized on image 38 of 78 approximately 7 cm from the nipple there is questioned architectural distortion/one view asymmetry. Left breast: There are no suspicious findings or evidence of malignancy onmammography. IMPRESSION: 1. One view asymmetry in the right central slightly medial breast 2. One view asymmetry/possible architectural distortion in the rightupper breast 2. No suspicious finding in the left breast however technically further posterior tissue of the outer left breast can be obtained. This can be completed at the time of the right diagnostic per below. RECOMMENDATION: Diagnostic right mammogram. If indicated at that time, right breast ultrasound will be performed. Patient will be contactedand scheduled to return for the additional imaging. At the time of the right diagnostic mammogram, a technical repeat for the left outer breast inthe craniocaudal view should be obtained. OVERALL ASSESSMENT: BI-RADS CATEGORY 0: INCOMPLETE: NEED ADDITIONALIMAGING EVALUATION. Report dictated by Farida Santana MD. Nacho Carson MD also assisted with the interpretation of this exam. I, Susan Easton MD have personally reviewed and interpreted this examination/study. 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 [place] [phone] PCP - General Family Medicine 08/23/20 Gaby Guo, RN REGISTERED NURSE MEDICAL SURGICAL 05/11/18
--- OUTSIDE RECORDS SUMMARY | 2024-09-14 11:00 | XMS_ITS | Patient Health Record ---
Author Organization [facility] Address [address] [place] [address] Care Team Providers Care Oncology Research Rn Name Role Phone Mary Meeks Primary Care Provider Unavailab Nayana Huynh Unavailable [phone] Bekah Lunsford Unavailable [phone] [facility], Provider Unavailable Unavailab le Allergies No Known Allergies Reason For Referral No Information Medications Medication SIG (Take, Route, Frequency, Duration) Notes Start Date End Date Status AeroChamber MV - as directed for 30 days Any adult spacer 06/27/2024 Active Fluticasone Propionate 50 MCG/ACT 2 spray(s) in each nostril twice a day for 30 days Active Albuterol Sulfate HFA 108 (90 Base) MCG/ACT 2 puffs as needed Inhalation every 4 hrs for 30 days 06/27/2024 Active Zoloft 25 MG 1 tablet Orally Once a day Active OLOPATADINE NASAL 665 mcg/inh 2 spray(s) intranasally 2 times a day for 30 days Active FLUTICASONE NASAL 50 mcg/inh 2 spray(s) in each nostril twice a day for 30 days Active NASAL WASHES N/A as directed intranasally as needed for 30 days Active Wixela Inhub 100-50 MCG/ACT 1 puff Inhalation Twice a day for 30 days 06/29/2024 Active LEVOCETIRIZINE 5 mg 1 tab(s) orally once a day for 30 days Active TRIAMCINOLONE ACETONIDE TOPICAL 0.1% 1 jazz applied topically to flared areas PRN for 7 days Active Triamcinolone Acetonide 0.1 % 1 application Externally Two times a Week Active Levocetirizine Dihydrochloride 5 MG 1 tab(s) orally once a day for 30 days Active Triamcinolone Acetonide 0.1 % 1 jazz applied topically to flared areas PRN for 7 days Not-Taking Azelastine HCl 137 MCG/SPRAY 2 puffs (1 spray in each nostril) Nasally Twice a day for 30 days 06/27/2024 Active Fluticasone Propionate 50 MCG/ACT 1 spray in each nostril Nasally Twice a day Not-Taking Olopatadine-Mometasone 665-25 MCG/ACT 4 sprays (2 sprays in each nostril) Nasally Twice a day Active Sertraline HCl 25 MG 1 tab(s) orally onc e a day Not-Taking Immunizations Vaccine Route Administration Date Status Comme nts Influenza Unknown 03/07/2023 Administered Portal [employer] Social History Tobacco Use: Social History Observation Description Date Details (start date - stop date) Never Smoker NA - NA Tobacco Control (Standard) Question Answer Notes Tobacco use: Nonsmoker Problems Problem Type SNOMED Code ICD Code Onset Dates Problem Status W/U Status Risk Notes Problem Chronic allergic conjunctivitis (89742558) Other chronic allergic conjunctivitis (H10.45) Active confirmed Problem Allergic rhinitis caused by pollen (disorder) (58425557) Allergic rhinitis due to pollen (J30.1) Active confirmed Problem Allergic rhinitis (17736178) Other allergic rhinitis (J30.89) Active confirmed Problem Chronic fatigue syndrome (disorder) (25083615) Chronic fatigue, unspecified (R53.82) Active confirmed Problem Allergic rhinitis caused by animal hair and dander (044322458822343) Allergic rhinitis due to animal (cat) (dog) hair and dander (J30.81) Active confirmed Problem Cough (finding) (93998594) Cough, unspecified (R05.9) Active confirmed Vital Signs Oximetry 96 % 06/27/2024 Blood pressure diastolic 65 mm Hg 06/27/2024 Height 68 in 06/27/2024 Blood pressure systolic 94 mm Hg 06/27/2024 Weight 203.6 lbs 06/27/2024 BMI 30.95 kg/m2 06/27/2024 Encounters Encounter Location Date Provider [place] [phone] 11/14/2023 Provider [facility] Allergic rhinitis due to pollen J30.1 and Rash and other nonspecific skin eruption R21 [address] [address] 12/22/2023 Nayana Barrera Allergic rhinitis du e to pollen J30.1 ; Allergic rhinitis due to animal (cat) (dog) hair and dander J30.81 ; Other allergic rhinitis J30.89 ; Other chronic allergic conjunctivitis H10.45 ; Cough, unspecified R05.9 ; Rash and other nonspecific skin eruption R21 and Chronic fatigue, unspecified R53.[address] [address] 06/27/2024 Nayana Barrera Allergic rhinitis du e to pollen J30.1 ; Cough, unspecified R05.9 ; Allergic rhinitis due to animal (cat) (dog) hair and dander J30.81 ; Other allergic rhinitis J30.89 ; Other chronic allergic conjunctivitis H10.45 ; Rash and other nonspecific skin eruption R21 and Chronic fatigue, unspecified R53.[address] [address] 06/27/2024 Nayana Barrera Cough, unspecified R05.[address] [address] 06/28/2024 Nayana Barrera [address] [address] 06/29/2024 Nayana Barrera Assessments Encounter Date Diagnosis (ICD Code) Assessment Notes Treatment Notes Treatment Clinical Notes Section Notes 11/14/2023 Allergic rhinitis due to pollen (ICD-10 - J30.1) 12/22/2023 Allergic rhinitis due to pollen (ICD-10 - J30.1) Danette clearly suffers from atopic disease based upon our prior skin testing and clinical history. Accordingly, we have encouraged her medication regimen, discussed nasal washes and allergy-specific avoidance measures. We also discussed adjunctive therapies including subcutaneous, specific allergen immunotherapy as relates to the treatment and prevention of atopic disease. - Continue medication regimen as above and follow avoidance measures. - Danette in not interested in immunotherapy at this time. - Continue daily olopatadine, taking Xyzal as-needed due to dry eye. - Follow-up in 6 months for further evaluation and management 12/22/2023 Allergic rhinitis due to animal (cat) (dog) hair and dander (ICD-10 - J30.81) Follow allergen avoidance, meds and consider SCIT as an adjunctive treatment to current regimen 06/27/2024 Allergic rhinitis due to pollen (ICD-10 - J30.1) Danette clearly suffers from atopic disease based upon our prior skin testing and clinical history. Accordingly, we have encouraged her medication regimen, discussed nasal washes and allergy-specific avoidance measures. We also discussed adjunctive therapies including subcutaneous, specific allergen immunotherapy as relates to the treatment and prevention of atopic disease. - Continue medication regimen as above and follow avoidance measures. Will send azelastine as Danette reports olopatadine is no longer covered by her insurance. - Danette in not interested in immunotherapy at this time. - Follow-up in 6 months for further evaluation and management in regard to ARC 06/27/2024 Cough, unspecified (ICD-10 - R05.9) Danette presented to her initial visit with complaints of daily cough that worsens during peak allergy season. She felt her symptoms were driven by drainage. Denies history of hospitalizations due to lower airway symptoms. She returns today reporting lingering cough and shortness of breath following bronchitis a week and a half ago. She was seen at and treated with antibiotics and steroids. Danette is unsure of the antibiotic she was prescribed. She was also given an albuterol inhaler, which she is using every 4-6 hours as-needed. Overall she feels her symptoms have improved, however cough has lingered. - Spirometry obtained previously that showed normal FEV1, FVC and FEV1%. Repeat deferred today, plan to obtain next visit. - Last visit Danette stated I don't have any cough or shortness of breath. - Due to lingering symptoms, will start trial of medium-dose ICS/LABA, to be used with AeroChamber. She is aware to rinse her mouth after use. Lungs are clear to auscultation on PE. - Continue RYAN as-needed. - Danette is to contact the office with worsening or lingering symptoms. - Treat atopic disease aggressively, see plans above. - Follow-up in 4 weeks for repeat spirometry and further evaluation and management 06/27/2024 Cough, unspecified (ICD-10 - R05.9) 06/27/2024 Allergic rhinitis due to animal (cat) (dog) hair and dander (ICD-10 - J30.81) Follow allergen avoidance, meds and consider SCIT as an adjunctive treatment to current regimen 12/22/2023 Other allergic rhinitis (ICD-10 - J30.89) Follow allergen avoidance, meds and consider SCIT as an adjunctive treatment to current regimen 12/22/2023 Other chronic allergic conjunctivitis (ICD-10 - H10.45) Given ocular signs and symptoms I encouraged allergy avoidance measures and meds as above. If symptoms persist, consider adding additional medications including intraocular antihistamine/mast cell stabilizer, PRN and consider SCIT as an adjunctive measure 06/27/2024 Other allergic rhinitis (ICD-10 - J30.89) Follow allergen avoidance, meds and consider SCIT as an adjunctive treatment to current regimen 06/27/2024 Other chronic allergic conjunctivitis (ICD-10 - H10.45) Given ocular signs and symptoms I encouraged allergy avoidance measures and meds as above. If symptoms persist, consider adding additional medications including intraocular antihistamine/mast cell stabilizer, PRN and consider SCIT as an adjunctive measure 12/22/2023 Cough, unspecified (ICD-10 - R05.9) Danette presented last visit with complaints of daily cough that worsens during peak allergy season. She feels her symptoms are driven by drainage. She denies shortness of breath or wheezing, denies nighttime symptoms. She has never been prescribed an inhaler, denies history of hospitalizations due to lower airway symptoms. - Spirometry obtained previously that showed normal FEV1, FVC and FEV1%. - Last visit Danette stated I don't have any cough or shortness of breath. - Treat atopic disease aggressively, see plans above. - Consider RYAN as-needed or ICS if Danette's symptoms recur. 11/14/2023 Rash and other nonspecific skin eruption (ICD-10 - R21) 12/22/2023 Rash and other nonspecific skin eruption (ICD-10 - R21) Danette reports that during colder months her hands and fingers become very dry and crack open. She denies history of other skin issues, no history of eczema. She has been using topical triamcinolone as-needed, which she finds beneficial. - Based on her history, Danette likely suffers from dry skin. She was encouraged to soak in the bathtub daily for 20 minutes in lukewarm water, followed immediately by Vanicream application to her whole body. - Avoid products with fragrance, dyes and preservatives. - Continue as-needed triamcinolone, avoid face and genitals 06/27/2024 Rash and other nonspecific skin eruption (ICD-10 - R21) Danette reports that during colder months her hands and fingers become very dry and crack open. She denies history of other skin issues, no history of eczema. She has been using topical triamcinolone as-needed, which she finds beneficial. - Based on her history, Danette likely suffers from dry skin. She was encouraged to soak in the bathtub daily for 20 minutes in lukewarm water, followed immediately by Vanicream application to her whole body. - Avoid products with fragrance, dyes and preservatives. - Continue as-needed triamcinolone, avoid face and genitals 06/27/2024 Chronic fatigue, unspecified (ICD-10 - R53.82) Danette reports drowsiness with occasional nighttime awakenings. Discussed completeing a sleep study, Danette is considering at this time 12/22/2023 Chronic fatigue, unspecified (ICD-10 - R53.82) Danette reports drowsiness with occasional nighttime awakenings. Discussed completeing a sleep study, Danette is considering at this time Plan Of Treatment No Information Insurance Providers Payer Name Payer Address Payer Phone Subscriber Number Group Number Insured Name Patient Relationship to Insured Coverage Start Date Coverage End Date [facility] [employer] [address] [place] [phone] [id number] Danette Grijalva Self - patient is the insured 4 Medical (General) History Medical History History ICD Code Depression, unspecified F32.A deviated septum Surgical History Surgery Date(Month/Year) Hysterectomy 12/30/2018 Hospitalization History Reason Date(Month/Year)
--- OUTSIDE RECORDS SUMMARY | 2024-09-14 11:00 | XMS_ITS | Encounter Summary ---
Author Organization [facility] Address [address] [place] [address] Care Team Providers Care Showroom Salesperson Name Role Phone Efraín Holden MD Primary Care Provider [phone] Gaby Guo RN Unavailable Unavailable Mary Meeks MD Primary Care Provider [phone] Reason for Visit * Reason Onset Date Comments Question 05/06/2018 Surgery order Encounter Details Date Type Department Care Team (Late Contact Info) Description 05/06/2018 Telephone [facility] [address] [place] [address] Corinne Newman MD [address] [place] [address] Question (Surgery order) Social History Tobacco Use Types Packs/Day Years Used Date Smoking Tobacco: Never Smokeless Tobacco: Never Alcohol Use Standard Drinks/Week Comments Yes 0 (1 standard drink = 0.6 oz pur e alcohol) Comments No Sex and Gender Information Value Date Recorded Sex Assigned at Not on file 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 EL ENGINE I PIPE FITTER documented in this encounter Plan of Treatment Upcoming Encounters Date Type Department Care Team (Late Contact Info) Description 01/09/2025 11:30 AM CDT Appointment [facility] [address] [place] [address] documented as of this encounter Visit Diagnoses Not on filedocumented in this encounter Care Teams Showroom Salesperson Relationship Specialty Start Date End Date Efraín Holden MD PCP - General 11/23/12 08/22/20 Mary Meeks MD [address] [place] [address] [address] [place] [id number] PCP - General Family Medicine 08/23/20 Gaby Guo RN REGISTERED NURSE MEDICAL SURGICAL 05/11/18 documented as of this encounter
--- OUTSIDE RECORDS SUMMARY | 2024-09-14 11:00 | XMS_ITS | Clinical Summary ---
Author Organization [facility] Address [address] [place] [address] Care Team Providers Care Self Propelled Hot Mix Roller Operator Name Role Phone Mary Meeks MD Primary [...] Free, Intramu scular 03/23/2015,05/15/2014 ZOSTER Recombinant 06/12/2019,03/26/2019 Surgical History Surgery Date Site/Laterality Comments BREAST SURGERY COLONOSCOPY MYOMECTOMY VAGINAL APPROACH WISDOM TOOTH EXTRACTION BREAST EXCISIONAL BIOPSY Right LAPAROSCOPIC TOTAL HYSTERECTOMY TLH-BS with ovarian conservation by Dr. Padmini Newman Medical History Medical History Date Comments Nausea after anesthesia Family History Medical History Relation Name Comments Alzheimer's disease Father's Brother Fami ly history of Alzheimer's disease - age of onset not known (Added by TW Conv) Colon cancer Maternal Grandmother Alzheimer's disease Paternal Grandfather Family history of Alzheimer's disease - age of onset not known (Added by TW Conv) Breast cancer Neg Hx Ovarian cancer Neg Hx Uterine cancer Neg Hx Relation Name Status Comments Father's Brother Maternal Grandmother Paternal Grandfather Social History Tobacco Use Types Packs/Day Years Used Date Smoking Tobacco: Never Smokeless Tobacco: Never Alcohol Use Standard Drinks/Week Comments No 0 (1 standard drink = 0.6 oz pur e alcohol) Comments No Sex and Gender Information Value Date Recorded Sex Assigned at Not on file Legal Sex Female 10:29 AM GLASS BLOWER HELPER Gender Identity Female 08/03/2022 7:32 PM GLASS BLOWER HELPER Sexual Orientation Straight 08/03/2022 7: 32 PM GLASS BLOWER HELPER Obstetrics History Last Filed Vital Signs Vital Sign Reading Time Taken Comments Blood Pressure 120/80 06/28/2021 3:33 PM GLASS BLOWER HELPER Pulse 62 09/24/2017 12:35 PM CDT Temperature 36.5 C (97.7 F) 09/24/2017 12:04 PM CDT Respiratory Rate 16 09/24/2017 12:35 PM CDT Oxygen Saturation 99% 09/24/2017 12:35 PM CDT Inhaled Oxygen Concentration - - Weight 87.6 kg (193 lb 1.6 oz) 06/28/2021 3:33 P M GLASS BLOWER HELPER Height 171.5 cm (5' 7.5 ) 06/28/2021 3:33 PM GLASS BLOWER HELPER Body Mass Index 29.8 06/28/2021 3:33 PM GLASS BLOWER HELPER Plan of Treatment Not on file Insurance [address] [id number] Care Teams Self Propelled Hot Mix Roller Operator Relationship Specialty Start Date End Date Mary Meeks MD [address] [place] [address] [place] [address] PCP - General Family Medicine 09/12/20
--- OUTSIDE RECORDS SUMMARY | 2024-09-14 11:00 | XMS_ITS ---
Author Organization [facility] Address [address] [place] [address] Care Team Providers Care Cook Dessert Name Role Phone Gagesantanatressa Mary Primary Care Provider UnavailNayana Ruano Unavailable [phone] REASON FOR VISIT Needs call back from office Medications Medication SIG (Take, Route, Frequency, Duration) Notes Start Date End Date Status Wixela Inhub 100-50 MCG/ACT 1 puff Inhalation Twice a day for 30 days 06/29/2024 Active Encounters Encounter Location Date Provider Diagnosis [facility] [address] [place] [address] 06/29/2024 Nayana Barrera Plan Of Treatment Medication Medication Name Sig Start Date Stop Date Notes Fluticasone-Salmeterol 115-2 1 MCG/ACT 2 puffs Inhalation Twice a day 06/27/2024 Wixela Inhub 100-50 MCG/ACT 1 puff Inhal ation Twice a day for 30 days 06/29/2024 Progress Notes * Albert GRIJALVAaDOB:1965 (59 yo F)Acc No.[id number]:06/29/2024 Patient: Lamine HIGHTOWERDanette Newman :1965 A ge:59 Y S ex:Female Address:[address] [address] * Refills Start Wixela Inhub Aerosol Powder Breath Activated, 100-50 MCG/ACT, Inhalation, 1, 1 puff, Twice a day, 30 days, Refills=1 Stop Fluticasone-Salmeterol Aerosol, 115-21 MCG/ACT, Inhalation, 2 puffs, Twice a day * true * Date: Generated for Lona queen/Nayeli/Jacquie on: 0 09/14/2024 10:59 AM CDT
--- OUTSIDE RECORDS SUMMARY | 2024-09-14 11:00 | XMS_ITS ---
Author Organization [facility] Address [address] [place] [address] Care Team Providers Care Collections Manager Name Role Phone TylertressaMary Primary Care Provider Unavailab Nayana Huynh [phone] REASON FOR VISIT Chronic care management Encounters Encounter Location Date Provider Diagnosis [facility] [address] [place] [address] 06/28/2024 Nayana Barrera Plan Of Treatment No Information Progress Notes * Taylor GRIJALVAB:1965 (59 yo F)Acc No.[id number]:06/28/2024 Patient: Danette TIERNEY :1965 A ge:59 Y S ex:Female Address:[place] [address] * true * Date: Generated for Printi bret/Fahaydeeg/eTransmitting on: 0 09/14/2024 11:00 AM CDT
--- OUTSIDE RECORDS SUMMARY | 2024-09-14 11:00 | XMS_ITS | Clinical Summary ---
Author Organization [facility] Address [facility] [place] [address] Care Team Providers Care Assistant Product Manager Name Role Phone Mary Meeks MD Primary Care Provider [phone] Allergies Active Allergy Reactions Criticality Noted Date Comments Seasonal Runny Nose 08/01/2020 Medications multi vitamin/minerals tablet Take 1 tablet by mouth daily. Active Cholecalciferol (VITAMIN D) 50 MCG (1999) Tab Active venlafaxine XR 37.5 MG 24 hr capsule 07/26/2020 Active EQL EVENING PRIMROSE OIL OR Acti ve Family History Medical History Relation Comments No Known Problems Brother No Known Problems Father No Known Problems Maternal Aunt No Known Problems Mother No Known Problems Sister Relation Status Comments Brother Father Maternal Aunt Mother Sister Social History Tobacco Use Types Packs/Day Years Used Date Smoking Tobacco: Never Smokeless Tobacco: Never Tobacco Cessation:Counseling Given: No Comments:non smoker Alcohol Use Standard Drinks/Week Comments Never 0 (1 standard drink = 0.6 oz pur e alcohol) AUDIT-C Answer Date Recorded Q1: How often do you have a drink containing alc ohol? Never 08/01/2020 Average Number of Drinks Not on file 021 Frequency of Binge Drinking Not on file 07/2020 Comments Unknown Sex and Gender Information Value Date Recorded Sex Assigned at Not on file Legal Sex Female 8:07 PM CDT Gender Identity Not on file Sexual Orientation Not on file Last Filed Vital Signs Vital Sign Reading Time Taken Comments Blood Pressure 123/80 08/01/2020 7:53 AM BOARD OF EDUCATION SECRETARY Pulse 88 08/01/2020 7:53 AM BOARD OF EDUCATION SECRETARY Temperature 36.2 C (97.2 F) 08/01/2020 7:53 AM BOARD OF EDUCATION SECRETARY Respiratory Rate - - Oxygen Saturation 97% 08/01/2020 7:53 AM BOARD OF EDUCATION SECRETARY Inhaled Oxygen Concentration - - Weight 87.5 kg (193 lb) 08/01/2020 7:53 AM BOARD OF EDUCATION SECRETARY Height 172.7 cm (5' 8 ) 08/01/2020 7:53 AM BOARD OF EDUCATION SECRETARY Body Mass Index 29.35 08/01/2020 7:53 AM BOARD OF EDUCATION SECRETARY Plan of Treatment Health Maintenance Due Date Last Done Comments Cervical Cancer Screening Pa p Smear (Age 30 to 64) Every 3 Years 1965 Colorectal Cancer Screening Colonoscopy (10 Years) 1965 Annual Physical 1968 Hepatitis C 1983 Cervical Cancer Screening Pa p with HPV Testing (Age 30 to 64) Every 5 Years 1995 Cervical Cancer Screening wi th HPV 1995 Mammogram Screening 2005 COVID-19 Vaccine (1 - 2023-2 5 season) 2024 DTaP, Tdap and Td Vaccines ( 2 - Td or Tdap) 07/12/2029 07/12/2019 Zoster Vaccines Completed 06/12/2019, 03/26/2019 Meningococcal B Vaccine Aged Out No l onger eligible based on patient's age to complete this topic Meningococcal Vaccine Aged Out No max jason eligible based on patient's age to complete this topic Pneumococcal Vaccine: Pediatrics (0 to 5 Years) and At-Risk Patients (6 to 49 Years) Aged Out No longer eligible b ased on patient's age to complete this topic RSV Immunizations Under 20 Months Aged Out No longer eligible b ased on patient's age to complete this topic Insurance [facility] Care Teams Assistant Product Manager Relationship Specialty Start Date End Date Mary Meeks MD [address] [place] [address] PCP - General FAMILY PRACTICE 08/01/20
--- OUTSIDE RECORDS SUMMARY | 2024-09-14 11:00 | XMS_ITS ---
Author Organization [facility] Address [address] [place] [address] Care Team Providers Care Design Engineer Name Role Phone GagesantanaDennise bustillosissa Primary Care Provider Unavailab Nayana Huynh Unavailable [phone] REASON FOR VISIT Medication Medications Medication SIG (Take, Route, Frequency, Duration) Notes Start Date End Date Status Fluticasone-Salmeterol 115-21 MCG/ACT 2 puffs Inhalation Twice a day for 30 days 06/27/2024 Active Encounters Encounter Location Date Provider Diagnosis [facility] [address] [place] [address] 06/27/2024 Nayana Barrera Cough, unspecified R05.9 Assessments Encounter Date Diagnosis (ICD Code) Assessment Notes Treatment Notes Treatment Clinical Notes Section Notes 06/27/2024 Cough, unspecified (ICD-10 - R05.9) Plan Of Treatment Medication Medication Name Sig Start Date Stop Date Notes Symbicort 160-4.5 MCG/ACT 2 puffs Inhala tion Twice daily 06/27/2024 Fluticasone-Salmeterol 115-2 1 MCG/ACT 2 puffs Inhalation Twice a day for 30 days 06/27/2024 Progress Notes * Taylor GRIJALVAB:1965 (59 yo F)Acc No.[id number]:06/27/2024 Patient: Lamine HIGHTOWERTrent Danette :1965 A ge:59 Y S ex:Female Address:[address], [place] [address] * Refills Stop Symbicort Aerosol, 160-4.5 MCG/ACT, Inhalation, 2 puffs, Twice daily Start Fluticasone-Salmeterol Aerosol, 115-21 MCG/ACT, Inhalation, 1, 2 puffs, Twice a day, 30 days, Refills=0 * true * Date: Generated for Lona queen/Nayeli/Jacquie on: 0 09/14/2024 11:00 AM CDT
--- NOTE | 2024-10-10 09:44 | WPDSLEEPSTUD ---
Sleep Study Date of Study: 09/14/24 Ordering Provider: AnrolMaylin NP-Dago Interpreting Physician: Gabbie Sorto, Sleep Study Type: Polysomnogram Height: 1.73 m Weight: 90.718 kg Body Mass Index: 30.4 Neck Circumference (inches): 16 [place]: 6 Reason for Sleep Study Daytime hypersomnia Sleep History The patient is a 59-year-old female who had a sleep study ordered for the evaluation of sleep apnea. The patient denies awakening from sleep short of breath. She denies awakening at night with heartburn, belching, or cough. She occasionally snores. She frequently has trouble sleeping when she has a cold. She denies waking up gasping for air throughout the night. She denies having breathing problems at night observed by herself or others. She rarely sweats excessively at night. She denies having heart palpitations or irregular heartbeats during the night. She frequently falls asleep during the day but never while driving. She denies sleep paralysis and cataplexy. She rarely has trouble at school or work due to sleepiness. She rarely experiences vivid dreamlike scenes upon awakening or falling asleep. She denies feeling afraid of going to sleep. She denies having nightmares. She rarely remembers her dreams. She occasionally has thoughts racing through her mind. She rarely feels sad, depressed, or anxious. She rarely notices parts of her body jerk. She frequently has crawling and aching feelings in her legs but never has leg pain during the night. She frequently grinds her teeth during sleep and occasionally awakens with morning jaw pain. She is occasionally bothered by pain during the day but never awakened by pain during the night. She occasionally wakes up feeling stiff in the morning. She rarely wakes up with sore or achy muscles. She occasionally wakes up with pain in the neck, spine, and other joints. She goes to bed between 10 to 11 p.m. on both weekdays and weekends. It takes her a variable amount of time to fall asleep. She is able to either fall asleep quickly or not at all. She wakes up 3-5 times throughout the night to adjust her position and is able to fall back asleep within a few minutes. She wakes up at 6 a.m. on weekdays and at 7 a.m. on the weekends. She typically gets 7 hours of sleep per night. She will stay in bed for up to 10 minutes after waking up in the morning. She currently lives with her adult child. She denies consuming any caffeinated beverages within 2 hours of bedtime. She denies engaging in physical exercise before bedtime. She will occasionally read and watch television before falling asleep. She denies taking naps in the afternoon or the evening. She denies consuming caffeinated beverages throughout the day. She denies tobacco, alcohol, and recreational drug use. Medications Home Medications ?Medication ?Instructions ?Recorded ?Confirmed ?Type sertraline 25 mg tablet 25 mg PO DAILY 11/05/20 11/05/20 History Sleep Procedure A full night polysomnogram using the [employer] multi-channel system recorded the standard physiologic parameters including EEG, EOG, submentalis EMG, anterior tibialis EMG, EKG, body position, nasal and oral airflow using nasal pressure sensor and thermistor.? Respiratory parameters of chest and abdominal movements were recorded with Respiratory Inductance Plethysmography belts. Oxygen saturation was recorded by pulse oximetry. Video monitoring was also performed. Sleep stages, periodic limb movements, and EEG arousals were scored in 30 second epochs according to the criteria of the AASM Scoring Manual. The Apnea-Hypopnea Index was calculated using CMS guidelines for definition of hypopnea with 4% O2 desaturations while scoring respiratory events. Sleep Architecture The total recording time was 435.8 minutes.? The total sleep time was 364.5 minutes. Sleep latency was 11.7 minutes. REM latency was 260.0 minutes. Sleep efficiency was 83.6%. The patient had 38 awakenings for an awakening index of 6.3. Wake after sleep onset time was 60.0 minutes. The patient spent 32.0 minutes, 8.8% of total sleep time in Stage N1. The patient spent 217.0 minutes, 59.5% in Stage N2. The patient spent 51.5 minutes, 14.1% in Stage N3. The patient spent 64.0 minutes, 17.6% in Stage REM sleep. Respiratory Analysis The patient had 17 hypopneas and 5 central apneas for an overall Apnea Hypopnea Index of 3.6. The REM Apnea Hypopnea Index was 16.9. The NREM Apnea Hypopnea Index was 2.4. The patient had a Central Apnea Hypopnea Index of 0.8. There was no evidence of Marcus-Armendariz Respirations. Arousals There were 235 total arousals for an arousal index of 38.7. There were 84 spontaneous arousals for an index of 13.8. There were 14 arousals due to respiratory events for an index of 2.3. There were 117 arousals due to periodic limb movements for an index of 19.3.? There were 20 arousals due to isolated limb movements for an index of 3.3. Periodic Limb Movements The patient had 27 isolated limb movements with an index of 4.4. The patient had 237 periodic limb movements with an index of 39.0, which is elevated (normal < 15). Patient had a total of 264 limb movements with a total limb movement index of 43.5. Oximetry Data The patient had an average oxygen saturation of 93.6% in sleep with a minimum oxygen saturation of 84.0% and a maximum oxygen saturation of 97.0%. The patient had 24 oxygen desaturations that were 4% or greater resulting in an Oxygen Desaturation Index of 4.0.? The patient spent 0.6 minutes, 0.1% of total sleep time with an oxygen saturation below 88%. Snoring Profile Mild snoring was present throughout the study. Cardiac Profile The EKG showed normal sinus rhythm. No arrhythmias or premature beats were seen.?The patient had an average pulse rate of 68.8 bpm with a minimum pulse of rate of 54.0 bpm and a maximum pulse rate of 97.0 bpm.? EEG Profile No signs of seizure activity seen. Assessment and Plan Assessment and Plan (1) PLMD (periodic limb movement disorder): Code(s): G47.61 - Periodic limb movement disorder Status: Acute Assessment and Plan: The patient had an overall AHI of 3.6 with desaturation down to 84%. This is not consistent with sleep-disordered breathing. The patient had a significant number of limb movements during the study with the majority being periodic in nature. Approximately 50% of the periodic limb movements caused arousals in the patient's sleep. The patient's sleep history is consistent with Restless Leg Syndrome. I recommend that the patient have a serum ferritin drawn for evaluation of iron deficiency anemia. If the patient has a serum ferritin less than 75 ng/mL, I recommend starting a daily iron supplement and a Vitamin C supplement for better absorption. If the serum ferritin is greater than 75 ng/mL, I recommend starting a dopamine agonist and titrating the dose until symptoms resolve. There are nonpharmacological methods to treat limb movements including daily exercise, stretching calf muscles before bed, avoiding excessive amounts of caffeine and alcohol, vitamin B supplementation, magnesium lotion massaged into legs before bed, and use of a weighted blanket. Data The data obtained during this sleep study is adequate for interpretation. Certification This sleep study has been reviewed by a board certified sleep medicine physician.
[2024-10-10 09:47] VITALS: BMI 30.4
== END 2024-09-15 06:36 | disposition home or self-care (01) ==
PROVIDERS: PCP Family Medicine; Visit Provider Nurse Practitioner
DX: G47.30 Sleep apnea, unspecified (principal); G47.61 Periodic limb movement disorder
CPT/HCPCS: 95810